=== PATIENT | female | born 1970 | race Two or more races ===

== ENCOUNTER 2017-09-10 13:36 | Emergency (ER) | payer OTHER ==
[~2017-09-10] VITALS: Ht 160 cm; Wt 81.6 kg
[2017-09-10] MEDS ORDERED: NKM (14:10)
[2017-09-10 14:54] LABS: APPEARANCE,URINE CLOUDY; BILIRUBIN, URINE NEGATIVE (NEGATIVE); COLOR,URINE PALE YELLOW; GLUCOSE, URINE (UA) NEGATIVE (NEGATIVE); KETONES,URINE NEGATIVE (NEGATIVE); LEUKOCYTE ESTERASE ,URINE 3+ (NEGATIVE); NITRITE,URINE POSITIVE (NEGATIVE); PH,URINE 6 (4.5-8.0); PROTEIN,URINE 1+ (NEGATIVE); UROBILINOGEN,URINE NORMAL MG/DL (0.0-1.0)
[2017-09-10] MEDS ORDERED: Meropenem 1 GM in D5W 55 ML IVPB ONE (15:00)
[2017-09-10 15:38] LABS: ANION GAP 8 mmol/L (5-15); BLOOD UREA NITROGEN 11 mg/dL (7-18); CALCIUM 8.7 MG/DL (8.5-10.1); CARBON DIOXIDE 26 MMOL/L (21-32); CHLORIDE 103 MMOL/L (98-107); CREATININE 0.7 MG/DL (0.55-1.30); POTASSIUM 4.2 MMOL/L (3.5-5.1); SODIUM 137 MMOL/L (136-145)
[2017-09-10 15:41] LABS: BASOPHILS % (AUTO) 1.5 % (0.0-2.0); EOSINOPHILS % (AUTO) 1.5 % (0.0-3.0); HEMATOCRIT 39.8 % (37.0-47.0); HEMOGLOBIN 13.6 G/DL (12.0-16.0); LYMPHOCYTES % (AUTO) 36.1 % (20.0-45.0); MEAN CORPUSCULAR VOLUME 87 FL (80-99); NEUTROPHILS % (AUTO) 54.9 % (45.0-75.0); PLATELET COUNT 285 K/UL (150-450); RED BLOOD COUNT 4.55 M/UL (4.20-5.40); RED CELL DISTRIBUTION WIDTH 11.5 % (11.6-14.8); WHITE BLOOD COUNT 6.6 K/UL (4.8-10.8)
[2017-09-10 15:42] LABS: ALANINE AMINOTRANSFERASE 25 U/L (12-78); ALBUMIN 3.8 G/DL (3.4-5.0); ALBUMIN/GLOBULIN RATIO 0.9 (1.0-2.7); ALKALINE PHOSPHATASE 54 U/L (46-116); ASPARTATE AMINO TRANSFERASE 19 U/L (15-37); BILIRUBIN,TOTAL 0.4 MG/DL (0.2-1.0)
--- NOTE | 2017-09-10 16:45 | Emergency Room Report ---
History of Present Illness General Chief Complaint: General Complaint Source: Patient Present Illness HPI 46 YO Female presents to the ED sent by PCP and Urologist c/o 06/20 in severity right sided low back pain, lower abdominal cramping pain, patient has failed multiple outpatient oral antibiotic regimens her most recent culture and sensitivity report patient has ESLB and is only sensitive to imipenem or gentamicin. She denies fevers or chills. Patient states that she is been taking courses of antibiotics since April. pt. recently had cystoscopy revealing bladder inflammation and irritation. per Urologist kidneys were fine. Denies hematuria, frequency or urgency. Allergies: Coded Allergies: ALOE VERA (Verified Allergy, Unknown, 09/10/17) Patient History Past Medical History: see triage record Past Surgical History: none Pertinent Family History: none Last Menstrual Period: 09/07/17 Reviewed Nursing Documentation: PMH: Agreed; PSxH: Agreed Nursing Documentation-PMH Past Medical History: No History, Except For Review of Systems All Other Systems: negative except mentioned in HPI Physical Exam Vital Signs Date Time Temp Pulse Resp B/P (MAP) Pulse Ox O2 Delivery O2 Flow Rate FiO2 09/10/17 14:04 97.9 78 16 113/74 96 Room Air 97.9 Sp02 EP Interpretation: reviewed, normal General Appearance: no apparent distress, alert, GCS 15, non-toxic Head: normocephalic Eyes: bilateral eye normal inspection ENT: hearing grossly normal, normal voice Neck: full range of motion Respiratory: lungs clear, normal breath sounds, speaking full sentences Cardiovascular #1: regular rate, rhythm Gastrointestinal: normal bowel sounds, non tender, soft Rectal: deferred Genitourinary: normal inspection, CVA tenderness (L) - mild Musculoskeletal: back normal, gait/station normal, normal range of motion, non- tender Neurologic: alert, oriented x3, responsive, motor strength/tone normal, sensory intact, normal gait, speech normal, grossly normal Psychiatric: judgement/insight normal Skin: normal color, no rash, warm/dry, well hydrated Medical Decision Making PA Attestation Dr. marin is my supervising Physician whom patient management has been discussed with. Diagnostic Impression: Primary Impression: UTI due to extended-spectrum beta lactamase (ESBL) producing Escherichia coli ER Course 46 YO Female presents to the ED sent by PCP and Urologist c/o 06/20 in severity right sided low back pain, lower abdominal cramping pain, patient has failed multiple outpatient oral antibiotic regimens her most recent culture and sensitivity report patient has ESLB and is only sensitive to imipenem or gentamicin. She denies fevers or chills. Patient states that she is been taking courses of antibiotics since April. pt. recently had cystoscopy revealing bladder inflammation and irritation. per Urologist kidneys were fine. Denies hematuria, frequency or urgency. Ddx considered but are not limited to UTi , Pyelo, STI, Stone, Cystitis Vital signs: are WNL, pt. is afebrile H&PE are most consistent with UTI ORDERS: -CBC, CMP: Unremarkable -Lactic acid:0.8 -Blood cultures: Pending - UA labs are attached - Nitrite positive, elevated white blood cells and leukocyte esterase, moderate bacteria consistent with infection ED INTERVENTIONS: -Imipenem IV DISPOSITION: at this time pt. will be admitted to Dr. Jackson for ESLB UTI requiring course of IV antibiotics. Dr. Jackson agreed to admit the pt. and to continue pt. care management. Pt. to be transferred to [facility]. Labs Test 09/10/17 14:10 09/10/17 14:50 Urine Color Pale yellow Urine Appearance Cloudy Urine pH 6 (4.5-8.0) Urine Specific [place] 1.015 (1.005-1.035) Urine Protein 1+ (NEGATIVE) Urine Glucose (UA) Negative (NEGATIVE) Urine Ketones Negative (NEGATIVE) Urine Occult Blood 5+ (NEGATIVE) Urine Nitrite Positive (NEGATIVE) Urine Bilirubin Negative (NEGATIVE) Urine Urobilinogen Normal MG/DL (0.0-1.0) Urine Leukocyte Esterase 3+ (NEGATIVE) Urine RBC 20-30 /HPF (0 - 2) Urine WBC 60-80 /HPF (0 - 2) Urine Squamous Epithelial Cells Few /LPF (NONE/OCC) Urine Bacteria Many /HPF (NONE) Urine HCG, Qualitative Negative (NEGATIVE) White Blood Count 6.6 K/UL (4.8-10.8) Red Blood Count 4.55 M/UL (4.20-5.40) Hemoglobin 13.6 G/DL (12.0-16.0) Hematocrit 39.8 % (37.0-47.0) Mean Corpuscular Volume 87 FL (80-99) Mean Corpuscular Hemoglobin 29.9 PG (27.0-31.0) Mean Corpuscular Hemoglobin Concent 34.1 G/DL (32.0-36.0) Red Cell Distribution Width 11.5 % (11.6-14.8) Platelet Count 285 K/UL (150-450) Mean Platelet Volume 6.9 FL (6.5-10.1) Neutrophils (%) (Auto) 54.9 % (45.0-75.0) Lymphocytes (%) (Auto) 36.1 % (20.0-45.0) Monocytes (%) (Auto) 6.0 % (1.0-10.0) Eosinophils (%) (Auto) 1.5 % (0.0-3.0) Basophils (%) (Auto) 1.5 % (0.0-2.0) Sodium Level 137 MMOL/L (136-145) Potassium Level 4.2 MMOL/L (3.5-5.1) Chloride Level 103 MMOL/L (98-107) Carbon Dioxide Level 26 MMOL/L (21-32) Anion Gap 8 mmol/L (5-15) Blood Urea Nitrogen 11 mg/dL (7-18) Creatinine 0.7 MG/DL (0.55-1.30) Estimat Glomerular Filtration Rate > 60 mL/min (>60) Glucose Level 93 MG/DL (74-106) Lactic Acid Level 0.80 mmol/L (0.66-2.22) Calcium Level 8.7 MG/DL (8.5-10.1) Total Bilirubin 0.4 MG/DL (0.2-1.0) Aspartate Amino Transf (AST/SGOT) 19 U/L (15-37) Alanine Aminotransferase (ALT/SGPT) 25 U/L (12-78) Alkaline Phosphatase 54 U/L (46-116) Total Protein 7.9 G/DL (6.4-8.2) Albumin 3.8 G/DL (3.4-5.0) Globulin 4.1 g/dL Albumin/Globulin Ratio 0.9 (1.0-2.7) Last Vital Signs Date Time Temp Pulse Resp B/P (MAP) Pulse Ox O2 Delivery O2 Flow Rate FiO2 09/10/17 14:04 97.9 78 16 113/74 96 Room Air 97.9 Disposition: ADMITTED INPATIENT Condition: Serious Physician Consult: Dr. Pal, accepting physician Referrals: [facility],REFERRING (PCP) Melvina Hermosillo September 10, 2017 16:45
[2017-09-10 16:53] VITALS: BP 113/74
[2017-09-10 18:30] VITALS: BP 121/76
[2017-09-10 19:05] VITALS: BP 121/76
== END 2017-09-10 19:09 | disposition short-term general hospital (02) ==
LOC: EMR 14:30
DX: N39.0 Urinary tract infection, site not specified (principal); B96.29 Other Escherichia coli [E. coli] as the cause of diseases classified elsewhere
CPT/HCPCS: 36415; 80053; 81003; 81025; 83605; 85025; 87040; 87086; 87181; 99285